=== PATIENT | male | born 1960 | race Caucasian/White ===

== ENCOUNTER 2018-08-24 14:26 | Day surgery (SDC) | payer MEDICARE, BC ==
[~2018-08-24] VITALS: Ht 177.8 cm; Wt 88.9 kg
[2018-08-24] MEDS ORDERED: NOVOLIN R100 U/ML SQ (15:23)
[2018-08-24] MEDS ORDERED: ASMANEX TW0.22 MG/A1 IH (15:23)
[2018-08-24] MEDS ORDERED: MELATONIN1 MG PO (15:24)
[2018-08-24] MEDS ORDERED: PROAIR HFA0.09 MG/AC IH (15:25)
[2018-08-24] MEDS ORDERED: CYMBALTA 30MG30 MG PO (15:26)
[2018-08-24] MEDS ORDERED: PRINIVIL40 MG PO (15:27)
[2018-08-24] MEDS ORDERED: LEVOXYL0.025 MG PO (15:27)
[2018-08-24] MEDS ORDERED: NEURONTIN300 MG/CAP PO (15:28)
[2018-08-24] MEDS ORDERED: PLAQUENIL 200M200 MG PO (15:28)
[2018-08-24] MEDS ORDERED: EPA FISH OIL1 SGL PO (15:29)
[2018-08-24] MEDS ORDERED: ZOLOFT 100MG100 MG PO (15:41)
[2018-08-24] MEDS ORDERED: NOVOLIN N100 U/ML SQ (15:42)
[2018-08-24] MEDS ORDERED: ASPIRIN 81M81 MG/TA2 PO (15:43)
[2018-08-24 15:44] VITALS: BP 138/74; PULSE 76; TEMP 98.3
[2018-08-24 16:40] VITALS: BP 129/73; PULSE 91; TEMP 98.4
--- NOTE | 2018-08-24 16:40 | NUR ---
The patient is wheeled to [facility] via cart by Anai LYN. The patient ambulates to the chair with a steady gait and nurse standby assist. The patient's vital signs are stable. Report is obtained. The patient is sleepy at this time and will be allowed to rest before he has anything to eat or drink. The call light is within reach and the patient's is at the bedside. Will continue to monitor.
[2018-08-24 16:55] VITALS: BP 166/65; PULSE 86
--- NOTE | 2018-08-24 16:55 | NUR ---
The patient's vital signs are stable. The patient requests a muffin and sprite which is brought to him at this time. The call light is within reach and the patient's is at the bedside. Will continue to monitor.
[2018-08-24 17:10] VITALS: BP 139/68; PULSE 88
--- NOTE | 2018-08-24 17:10 | NUR ---
The patient's vital signs are stable. The patient has talked to Dr. Gardner and states he is ready to be discharged. The discharge instructions will be reviewed with the patient.
--- NOTE | 2018-08-24 17:18 | NUR ---
The discharge instructions are reviewed with the patient and his and all questions are answered. The IV is removed and the tip is intact and a dressing is applied. The patient changes into his personal clothes to be discharged home.
--- NOTE | 2018-08-24 17:21 | NUR ---
The patient is wheeled to the patient entrance via wheelchair by Tori ROSE to be discharge home via personal vehicle by his . The patient is sent home with his discharge instructions and education packets.
== END 2018-08-24 17:21 | disposition home or self-care (01) ==
LOC: SDCO 14:26
DX: K21.0 Gastro-esophageal reflux disease with esophagitis (principal); K29.30 Chronic superficial gastritis without bleeding; K29.80 Duodenitis without bleeding; Z88.8 Allergy status to other drugs, medicaments and biological substances; M33.90 Dermatopolymyositis, unspecified, organ involvement unspecified
CPT/HCPCS: J2250; J3010; J7030

== ENCOUNTER 2018-11-14 11:24 | Emergency (ER) | payer MEDICARE, BC ==
[~2018-11-14] VITALS: Ht 182.9 cm; Wt 88.6 kg
[~2018-11-14 11:24] MED LIST: ASMANEX TW0.22 MG/A1 IH; ASPIRIN 81M81 MG/TA2 PO; CYMBALTA 30MG30 MG PO; EPA FISH OIL1 SGL PO; LEVOXYL0.025 MG PO; MELATONIN1 MG PO; NEURONTIN300 MG/CAP PO; NOVOLIN N100 U/ML SQ; NOVOLIN R100 U/ML SQ; PLAQUENIL 200M200 MG PO; PRINIVIL40 MG PO; PROAIR HFA0.09 MG/AC IH; ZOLOFT 100MG100 MG PO
[2018-11-14] MEDS ORDERED: PRIL40 PO (11:46)
[2018-11-14] MEDS ORDERED: CRUTCHES MC (13:25)
[2018-11-14 13:36] VITALS: TEMP 101.9
[2018-11-14] MEDS ORDERED: DOXYCYCLINE 10100 MG PO (14:31)
[2018-11-14] MEDS ORDERED: OMNICEF 300MG300 MG PO (14:31)
[2018-11-14 14:50] LABS: COLLECTION METHOD CLEAN CATCH
[2018-11-14 14:58] LABS: BASO # 0.1 (0.0-0.2); BASO % 0.4 % (0.0-2.0); EOS % 0.3 % (0-4.0); GRAN # 9.5 (1.4-6.5); GRAN % 80.7 % (42.2-75.2); HEMATOCRIT 37.6 % (42.0-52.0); HEMOGLOBIN 13.2 g/dl (13.5-18.0); LYMPH % 8.3 % (20.0-51.0); MEAN CELL VOLUME 87 fl (80.0-100.0); MEAN CORPUSCULAR HEMOGLOBIN 31 pg (27.0-31.0); MEAN CORPUSCULAR HGB CONC 35 g/dl (33.0-37.0); MEAN PLATELET VOLUME 10.4 fl (7.4-10.4); MONO # 1.2 (0.1-0.6); PLATELET COUNT 216 K/mm3 (130-400); REDCELL DISTRIBUTION WIDTH-CV 12.8 % (11.5-14.5)
[2018-11-14 15:00] LABS: PH 7 (5-8); SQUAMOUS EPITHELIAL None Seen /hpf; URINE APPEARANCE Clear; URINE BACTERIA None Seen /hpf; URINE BILIRUBIN Negative (NEGATIVE); URINE BLOOD Negative (NEGATIVE); URINE COLOR Yellow; URINE GLUCOSE 3+ (NEGATIVE); URINE KETONE 1+ (NEGATIVE); URINE LEUKOCYTE ESTERASE Negative (NEGATIVE); URINE NITRATE Negative (NEGATIVE); URINE PROTEIN(semi-quant) Negative (NEGATIVE); URINE RBC 0-2 /hpf; URINE UROBILINOGEN Negative (NEGATIVE)
[2018-11-14 15:13] LABS: ALBUMIN 3.9 gm/dL (3.5-5.0); BILIRUBIN,TOTAL 1.5 mg/dL (0.0-1.0); CALCIUM 9.6 mg/dL (8.4-10.2); CREATININE, serum 0.65 mg/dL (0.66-1.25); POTASSIUM 4.6 mmol/L (3.4-5.0); TOTAL PROTEIN 7.2 gm/dL (6.4-8.2)
[2018-11-14 15:32] LABS: C-REACTIVE PROTEIN 15.7 mg/dL (0.0-0.9)
[2018-11-14 17:45] VITALS: BP 122/71; PULSE 76
== END 2018-11-14 17:45 | disposition home or self-care (01) ==
LOC: COL.ER 11:24
PROVIDERS: Emergency Medicine
DX: M25.551 Pain in right hip (principal); E11.9 Type 2 diabetes mellitus without complications; Z79.4 Long term (current) use of insulin; Z79.82 Long term (current) use of aspirin
CPT/HCPCS: J0696; J1815; J7030